=== PATIENT | female | born 1995 | race Caucasian/White ===

== ENCOUNTER 2017-09-16 10:09 | Emergency (ER) | payer OTHER, MEDICAID, SELFPAY ==
[2017-09-16 10:10] VITALS: BP 96/66; PULSE 85; RESP 17; TEMP 36.9; O2SAT 100; BMI 16.8
--- NOTE | 2017-09-16 10:44 | ED.DCSUM_ITS ---
- ER Visit Summary Date of Service: 09/16/17 Chief Complaint: Abdominal pain History of Present Illness: The patient is a 22 F who states she has had 2 weeks of discomfort in her right abdomen because she over did it at her job, and strained muscles, that were painful when she moved around, and in the past for 5 days she has been having intermittent right-sided pain and she thinks there are 2 distinct pains that are new in the past for 5 days; and achy right upper quadrant pain and an intermittent sharp pain under her right ribs that she feels in her right shoulder when it occurs. She feels a little nauseated now because I have not eaten this morning but has had no associated nausea with her pains or vomiting. No changes in bowel movements which have been normal, normal urination without blood or frequency. No pain in her back. No pain radiates into her groin. No chest problems although she occasionally feels like she gets some reflux when she lies down, that is not occurring in the past few days. She states that she had gallbladder problems when I was . When asked about whether she had stones or not, or whether she had a workup, she states that she does not know over and over. She does not know she had an ultrasound, she does not think she had a HIDA scan, she does not know if she had any stones. Physical Examination: Well-appearing in no distress. Appears to be in pain when she tries to sit up so she rolls over onto her side. No CVA tenderness. Lungs are clear, heart is regular. Tender in the right upper quadrant diffusely , no Amaya sign. Abdomen soft and nondistended with normal bowel sounds present. No other areas of tenderness. Test Results: Blood work is all normal. This includes liver enzymes and lipase and white blood count, there is also no shift with the total white blood count which is 6.0. Urinalysis shows 100 leukocyte esterase, 5-10 white blood cells, this was sent for culture. negative. Right upper quadrant ultrasound is normal. Emergency Department Course and Treatment: I reviewed previous records, she has never had a right upper quadrant ultrasound, and has no documented ER visits here of pain in her right upper quadrant. Once while she was an early first trimester , she had some epigastric discomfort with a total bilirubin of 1.3 but no imaging, other than obstetric. Ultrasound today of the right upper quadrant is normal, and her total bilirubin is normal as are the rest of her liver enzymes. After a dose of IV Toradol, she is feeling much better, and is able to sit up and move around on her own without rolling over to expose her back. I do not think she needs an emergency CT of the abdomen and pelvis at this time. As I discussed with the patient, differential diagnosis does include intestinal pain, intraluminal etiologies, and abdominal wall muscular strain, or combination of these. Will prescribe her Ultram, Bentyl and omeprazole and advised her to follow-up with her doctor. OARRS negative. Treatment Plan: As above Disposition: Discharge home Impression: Right upper quadrant abdominal pain This note was generated with [employer] dictation software. It may contain incorrect words, spelling, and punctuation that were not noted in review of the chart prior to signing ED Disposition - Plan for ED Patient: Disposition: Home or Assisted Living Chief Complaint: Abd Pain Instructions: ED Abdominal Pain Unkn Cause Prescriptions: TraMADol [Ultram] 50 mg PO Q4H PRN PRN #20 tablet PRN Reason: Pain Omeprazole 20 mg PO DAILY #14 capsule. Dicyclomine HCl [Bentyl] 20 mg PO Q6H PRN #20 cap PRN Reason: abdominal discomfort Referrals: Ariela Jackson [NON-STAFF] - (or your own doctor if you have one)
--- NOTE | 2017-09-16 10:46 | US_ITS ---
STUDY: ABDOMINAL ULTRASOUND - RIGHT UPPER QUADRANT REASON FOR VISIT: Female, 22 years old. Right upper quadrant pain. TECHNIQUE: Ultrasound evaluation of the right upper quadrant was performed with real-time and static cifuentes-scale imaging. TECHNICAL QUALITY: Adequate. COMPARISON: None. FINDINGS: Liver: The liver measures 15.1 cm. There is normal echogenicity of the liver. The bile ducts are within normal limits. There is hepatic color flow. The direction of portal flow is hepatopetal. There is no demonstrated mass lesion. Gallbladder: Normal distended gallbladder. The gallbladder wall measures 1 mm. There is a negative sonographic Amaya's sign. There is no pericholecystic fluid. There are no gallstones. Common Bile Duct (C.B.D.): The common bile duct measures 3 mm. Pancreas: Normal size of the head, body and tail of the pancreas. There is normal echogenicity of the pancreas. There is no demonstrated pancreatic mass or cyst. Right Kidney: Normal size of the right kidney. The right kidney measures 10.2 cm. Normal renal cortex. The right cortex measures 1.4 cm. There is no demonstrated renal mass or cyst. There is no right hydronephrosis. Other: No focal abnormality identified in the right upper quadrant in the area noted by the patient as the region of pain. US/Gallbladder IMPRESSION: Normal right upper quadrant ultrasound examination. No gallstones or biliary dilatation. Electronically Signed: Pavan Sanchez MD at 13:15 EST , Service support ,
[2017-09-16] MEDS: Ondansetron 4 MG/2 ML Vial IV (11:07)
[2017-09-16] MEDS: Ketorolac 30 MG/ML Syringe IV (11:07)
[2017-09-16 11:22] LABS: Absolute Lymphocyte Count 1.93 X10^3/ul (0.83-4.51); Absolute Neutrophil Count 3.1 X10^3/uL (2.0-7.7); Basophil# 0.05 X10^3/uL; Basophil% 0.8 % (0-1); Eosinophil# 0.21 X10^3/uL; Eosinophils% 3.5 % (0-5); Hematocrit 37.2 % (37-47); Hemoglobin 12.1 g/dl (12.0-15.0); Lymphocyte # 1.93 X10^3/ul (4.0); Lymphocyte % 32.2 % (19-41); Mean Corp Hgb Conc 32.5 g/gl (32-36); Mean Corpuscular Hgb 29.2 pg (27.0-32.0); Mean Corpuscular Volume 89.9 fL (81-99); Mean Platelet Vol. 9.8 fl (6.2-12.0); Monocyte# 0.67 X10^3/uL; Monocyte% 11.2 % (0-10); Neutrophil # 3.13 X10^3/uL (2.7-7.7); Neutrophil % 52.3 % (47-70); Platelet Count 301 K/mm3 (150-450); RBC Distribution Width CV 13.1 % (11.6-14.6); RBC Distribution Width SD 43.3 fl (35.1-43.9); Red Blood Count 4.14 M/mm3 (4.2-5.4)
[2017-09-16 11:23] LABS: POSITIVE COUNT NO; POSITIVE DIFFERENTIAL NO; POSITIVE MORPHOLOGY NO
[2017-09-16 11:32] LABS: Red Blood Cells-Urine 0 SEEN /hpf (0-5)
[2017-09-16 11:36] LABS: Color, Urine Yellow (Yellow); Glucose, Dipstick Normal (Normal); Ketone-Dipstick Negative (Negative); Leukocyte Esterase-Dipstick 100 /ul (Negative); Nitrite-Dipstick Negative (Negative); Occult Blood-Urine Negative /ul (Negative); Protein-Dipstick 15 mg/dl (Negative); Specific Gravity, Urine 1.015 (1.002-1.030); Urine Bilirubin Dipstick Negative (Negative); Urine Clarity Clear (Clear); Urine Urobilinogen 4 mg/dl (Normal); Urine pH 6.5 (5.0 - 8.0)
[2017-09-16 11:38] LABS: Internal QC Validated? YES +Cl - CLEAR BKGD; Pregnancy, Urine Negative Negative
[2017-09-16 11:42] LABS: ALB/GLOB Ratio 0.7 RATIO (0.9-2.4); AST(SGOT) 14 U/L (15-37); Alanine Aminotransfer ALT/SGPT 23 U/L (13-56); Albumin, Serum 3.2 g/dL (3.2-5.0); Alkaline Phosphatase 78 U/L (45-117); Anion Gap 8 (5-15); BUN 13 mg/dL (7-18); BUN/Creat Ratio 19.1 RATIO (10-20); Calcium,Total 8.6 mg/dL (8.5-10.1); Chloride 106 mmol/L (98-107); Creatinine, Serum 0.68 mg/dL (0.55-1.02); EST Glomerular Filtration Rate 113 mL/min (>60); Est Glom Filt Rate - Afr Amer 136 mL/min (>60); Estimated Creatinine Clearance 89.52 ml/min; Globulin 4.7 g/dL (2.2-4.2); Glucose 77 mg/dL (74-106); Lipase 117 U/L (73-393); Protein, Total 7.9 g/dL (6.4-8.2); Sodium Level 138 mmol/L (136-145)
[2017-09-16 11:45] LABS: Bacteria 1+ /hpf (None Seen); Mucous, Urine 1+ /hpf (<or=2+); Squamous Epithelial Cells - UA 0-5 SEEN /hpf (5-10); White Blood Cells 5-10 SEEN /hpf (0-5)
[2017-09-16 15:00] VITALS: RESP 16
[2017-09-16 15:43] VITALS: PULSE 79; RESP 14
== END 2017-09-16 15:45 | disposition home or self-care (01) ==
PROVIDERS: Emergency Provider Emergency Medicine
DX: R10.11 Right upper quadrant pain (principal); R11.0 Nausea; Z72.0 Tobacco use
CPT/HCPCS: 76705; 80053; 81001; 81025; 83690; 85025; 87086; 87088; 99283; A4216; J2405

== ENCOUNTER 2018-08-09 10:15 | Day surgery (SDC) | payer OTHER, MEDICAID, SELFPAY ==
[2018-08-09] VITALS (7 sets, daily range): BP systolic 104–119; BP diastolic 57–87; PULSE 60–84; RESP 16–18; TEMP 36.2–37.1; O2SAT 99–100; BMI 17.7
--- NOTE | 2018-08-09 | IMM_PTH ---
PATIENT: NEIL BAUTISTA [place] [facility] [place][id number] AGE/SX: 23/F ROOM: RE08/09/[address]: Dr. Jamie Beck MD : 1995 BED: DIS: 08/09/2018 SPEC #: [id number] RECD: 08/10/18 10:06 STATUS: CHERY VARGHESE #: [id number] KIESHA: 08/09/18 00:[address]: Jamie Beck DEPT: IMMUNOHISTOCHEMISTRY RECD BY: Camila Spencer ENTERED: 08/10/18 10:09 SP TYPE: IMMUNO OTHR DR: No Primary Care Phys Tissues: A - Uterine cervix, NOS B - Uterine cervix, NOS Procedures: p16 (initial) KI-67 (add) PHYSICIAN & INSTITUTION [place] [id number] SPECIMEN INFORMATION: Tissue Source: A - Inferior LEEP, B - Superior LEEP Clinical Info: APOORVA III, severe dysplasia, endometrial polyp Specimen Number: [id number] A1 & B1 CPT code: 11958 x2, 40479 x2 METHODOLOGY: Deparaffinized sections of prefer/formalin-fixed tissue or PAP/DQ stained slides are incubated with monoclonal/polyclonal antibodies/oligonucleotide probes. Localization is made via biotin free immunoperoxidase method. Appropriate controls are performed and reacted as expected. Results on target cell population are indicated in the following table: RESULTS: ANTIBODY / CLONE RESULT Block A1 P16 (E6H4) positive, block staining Ki-67 (30-9) positive, moderate Block B1 P16 (E6H4) positive, focal and patchy Ki-67 (30-9) negative These tests were developed and their performance characteristics determined by [facility]. They may not have been cleared or approved by the U.S. Food and Drug Administration. The FDA has determined that such clearance or approval is not necessary. INTERPRETATION: A. Inferior LEEP: Moderate to severe squamous dysplasia. B. Superior LEEP: Focal changes suspicious for HPV cytopathic effects. SJ:michael 08/13/18
--- NOTE | 2018-08-09 | CER_PTH ---
PATIENT: NEIL BAUTISTA LOC: [facility] – [place] U#:[id number] AGE/SX: 23/F ROOM: RE08/09/[address]: Dr. Jamie Beck MD : 1995 BED: DIS: 08/09/2018 SPEC #: [id number] RECD: 08/09/18 15:18 STATUS: CHERY VARGHESE #: [id number] KIESHA: 08/09/18 00:[address]: Jamie Beck DEPT: SURGICAL PATHOLOGY RECD BY: Cuco Trevino ENTERED: 08/09/18 15:19 SP TYPE: CERV OTHR DR: No Primary Care Phys Tissues: A - UTERINE CERVIX LEEP B - UTERINE CERVIX LEEP C - Endocervical D - Endometrium, NOS Procedures: Surgery Specimen Level IV Surgery Specimen Level V HEADER OPERATION: LEEP cone PRE-OP DIAGNOSIS: APOORVA III with severe dysplasia, endometrial polyp TISSUE SUBMITTED: A - Inferior LEEP, B - Superior LEEP, C - Endocervical curettings, D - Endometrial curettings MICROSCOPIC DIAGNOSIS A. 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 Chronic inflammation. Resection margins are free of dysplastic changes. See comment. B. Cervix, superior LEEP conization: Focal changes suspicious for HPV cytopathic effects. Chronic inflammation and squamous metaplasia. Resection margins are free of dysplastic changes. See comment. C. Endocervical curettings: Fragments of benign endocervical mucosa, blood and mucous. Fragments of proliferative endometrium. D. Endometrial curettings: Proliferative endometrium. Focal area of hyalinized nodule, consistent with placental site nodule. SJ:rg 08/10/18 COMMENT A & B. Immunohistochemistry ([id number]) for surrogate HPV marker (p16) supports the above diagnosis. This case has been reviewed in consultation with Dr. Senior who concurs with the above diagnosis. MICROSCOPIC DESCRIPTION Slides are reviewed. GROSS DESCRIPTION A - Received in fixative is one container labeled with the patient's name and designated inferior LEEP. The specimen consists of a krause, indurated piece of tissue measuring 2 x 1 x 0.5 cm. No mucosal lesion is identified. The nonmucosal surface is inked black. The specimen is serially sectioned and submitted entirely in two cassettes. B - Received in fixative is one container labeled with the patient's name and designated superior LEEP. The specimen consists of a krause, indurated piece of tissue measuring 1.5 x 0.6 x 0.6 cm. No mucosal lesion is identified. The nonmucosal surface is inked black. The specimen is serially sectioned and submitted entirely in two cassettes. C - Received in fixative is one container labeled with the patient's name and designated endocervical curettings. The specimen consists of multiple fragments of hemorrhagic soft tissue mixed with mucoid tissue that in aggregate measure 2.5 x 2.5 x 0.1 cm. The specimen is totally submitted in one cassette. D - Received in fixative is one container labeled with the patient's name and designated endometrial curettings. The specimen consists of multiple irregular fragments of pink soft tissue that in aggregate measure 2 x 2 x 0.2 cm. The entire specimen is submitted in one cassette. / SJ:rg 08/09/18 TC:5 CPT: 10584 x2, 74361 x2
[2018-08-09 10:39] LABS: Internal QC Validated? YES +Cl - CLEAR BKGD; Pregnancy, Urine Negative Negative
[2018-08-09 10:50] LABS: Hemoglobin 13.9 g/dl (12.0-15.0); Mean Corp Hgb Conc 33.1 g/gl (32-36); Mean Corpuscular Hgb 30.2 pg (27.0-32.0); Mean Corpuscular Volume 91.1 fL (81-99); Mean Platelet Vol. 10.4 fl (6.2-12.0); Platelet Count 223 K/mm3 (150-450); RBC Distribution Width CV 12.7 % (11.6-14.6); RBC Distribution Width SD 41.8 fl (35.1-43.9); Red Blood Count 4.61 M/mm3 (4.2-5.4); Scan Indicated on CBC? Y/N NO
--- NOTE | 2018-08-09 12:51 | DCINST_ITS ---
Discharge Diet: No Restrictions Discharge Activity: May Drive - after 24 hours, May Shower May resume sexual activity in: 4-6 weeks - after seen by MD Call your doctor if you observe: Fever of 101 or Higher, Coldness, Increased Pain, Numbness or Tingling, Change in Color, Inability to urinate, Inability to have a bowel movement, Using more than one pad per hour, Shortness of breath, Fainting spells, Chest pain, Increased palpitations (irregular heartbeat), Uncontrolled pain Allergies/Adverse Reactions: Allergies acetaminophen [From Tylenol] Adverse Reaction (Verified 08/02/18 09:21) Other headache/migraine n/v aspirin [ASA] Adverse Reaction (Verified 08/02/18 09:21) Nausea nausea and migraine diphenhydramine [From Benadryl] Adverse Reaction (Verified 08/02/18 09:21) Other n/v migraine hydrocodone bitartrate [From Vicodin] Adverse Reaction (Verified 08/02/18 09:21) Other n/v migraine ibuprofen [From Advil] Adverse Reaction (Verified 08/02/18 09:21) Other n/v migraine oxycodone [From Percocet] Adverse Reaction (Verified 08/02/18 09:21) Other n/v migraine Medications to take at Discharge NK 08/02/18 Orders to be completed after discharge: ,Urine Time Frame: 08/09/18, Location: Laboratory Primary Care Physician: Care Physician,No Primary [Primary Care Provider] - Test Results: Test results from this visit will be discussed in further detail at your follow- up appointment, if applicable.
--- NOTE | 2018-08-09 12:53 | PCM.OPRPT ---
Report of Operation Date of Procedure: 08/09/18 Pre-Operative Diagnosis: (1) APOORVA 3 (2) Possible endometrial polyp Post-Operative Diagnosis: Same Surgery/Procedure Performed:: LEEP, Hysteroscopy with D&C Description of Surgical Findings:: Cervix with non-staining area c/w dysplasia. Uterus with proliferative appearing endometrial tissue. Possible small polyp vs normal endometrial tissue at fundus. Type of Anesthesia:: Local MAC Specimen's removed: Cervical cone specimens, ECC & EMC with possible endometrial polyp Estimated Blood Loss (mL): 75ml Fluids Replaced: 1,000ml Description of Procedure: Patient taken to room where MAC anesthesia placed & found to be adequate. She was placed in the dorsal lithotomy position, prepped & draped in normal sterile fashion. Speculum was placed & cervix visualized. Lugols placed & cervical dysplasia identifed. LEEP performed with 2x1 radius electrode in 2 passes. ECC performed. Roller ball used obtain some hemostasis. Then the cervix was gently dilated. Anterior cervix was grasped was a tenaculum. Hysteroscope was introduced. Sharp curettage performed with #1 curette. Repeat hysteroscopy showed some proliferative tissue at the fundus vs small polyp. Hysteroscope removed. Polyp grasper inserted & polyp vs endometrial tissue grasped & removed. Repeat hysteroscopy confirmed that this tissue had been removed. Tenaculum removed from cervix. LEEP site was then further cauterized with the roller ball to obtain hemostasis. Fibrillar was placed in the cone site. At end of procedure all instruments were removed from the vaginal cavity and vaginal sweep was performed. Patient tolerated with procedure well. - Complications None - Admit VTE Documentation VTE Mechan Device Prophylaxis: SCD's
== END 2018-08-09 14:11 | disposition home or self-care (01) ==
LOC: SDC 10:17 → AC 10:19
PROVIDERS: Referring Provider Obstetrics & Gynecology; Visit Provider Obstetrics & Gynecology
PROC: 0UBC7ZZ Excision of Cervix, Via Natural or Artificial Opening (ICD-10-PCS; CPT 57522; principal; 2018-08-09 11:30)
PROC: 0UB98ZZ Excision of Uterus, Via Natural or Artificial Opening Endoscopic (ICD-10-PCS; CPT 58558; 2018-08-09 11:30)
DX: D06.9 Carcinoma in situ of cervix, unspecified (principal); D26.1 Other benign neoplasm of corpus uteri; F17.200 Nicotine dependence, unspecified, uncomplicated
CPT/HCPCS: 57461; 58558; 36415; 81025; 85027; 86850; 86900; 88305; 88307; 88341; 88342; J7120

== ENCOUNTER 2020-03-09 18:15 | Emergency (ER) | payer SELFPAY ==
[2019-05-01 14:34] VITALS: BMI 17.7
[2020-03-09 18:16] VITALS: BP 106/76; PULSE 93; RESP 19; TEMP 37; O2SAT 97; BMI 17.8
[2020-03-09 20:25] LABS: Absolute Lymphocyte Count 3.19 X10^3/uL (0.83-4.51); Absolute Neutrophil Count 4.4 X10^3/uL (2.0-7.7); Basophil# 0.07 X10^3/uL; Basophil% 0.8 % (0-1); Eosinophil# 0.26 X10^3/uL; Hematocrit 42.9 % (37-47); Hemoglobin 14.3 g/dL (12.0-15.0); Lymphocyte # 3.19 X10^3/ul (4.0); Lymphocyte % 37.3 % (19-41); Mean Corp Hgb Conc 33.3 g/dL (32-36); Mean Corpuscular Hgb 31.2 pg (27.0-32.0); Mean Corpuscular Volume 93.5 fL (81-99); Mean Platelet Vol. 10.6 fl (6.2-12.0); Monocyte# 0.61 X10^3/uL; Monocyte% 7.1 % (0-10); NRBC Flagged by Analyzer 0 % (0-5); Neutrophil # 4.41 X10^3/uL (2.7-7.7); Neutrophil % 51.6 % (47-70); Platelet Count 208 K/mm3 (150-450); RBC Distribution Width CV 11.8 % (11.6-14.6); RBC Distribution Width SD 40.3 fl (35.1-43.9); Red Blood Count 4.59 M/mm3 (4.2-5.4); White Blood Count 8.6 K/mm3 (4.4-11.0)
[2020-03-09 20:34] LABS: Red Blood Cells-Urine 0 SEEN /hpf (0-5); White Blood Cells 0 SEEN /hpf (0-5)
[2020-03-09 20:38] LABS: Color, Urine Yellow (Yellow); Glucose, Dipstick Normal (Normal); Ketone-Dipstick 5 mg/dl (Negative); Leukocyte Esterase-Dipstick Negative /ul (Negative); Nitrite-Dipstick Negative (Negative); Occult Blood-Urine Negative /ul (Negative); Protein-Dipstick 15 mg/dl (Negative); Specific Gravity, Urine 1.025 (1.002-1.030); Urine Bilirubin Dipstick Negative (Negative); Urine Clarity Clear (Clear); Urine Urobilinogen 1 mg/dl (Normal)
[2020-03-09 20:40] LABS: Anion Gap 4 (5-15); BUN 12 mg/dL (7-18); BUN/Creat Ratio 14.6 RATIO (10-20); Chloride 110 mmol/L (98-107); Creatinine, Serum 0.82 mg/dL (0.55-1.02); EST Glomerular Filtration Rate 89 mL/min (>60); Est Glom Filt Rate - Afr Amer 108 mL/min (>60); Glucose 101 mg/dL (74-106); Potassium 4.1 mmol/L (3.5-5.1); Sodium Level 142 mmol/L (136-145)
[2020-03-09 20:44] LABS: Bacteria RARE /hpf (None Seen); Mucous, Urine RARE /hpf (<or=2+); Squamous Epithelial Cells - UA 0-5 SEEN /hpf (5-10)
[2020-03-09 20:45] LABS: Internal QC Validated? YES +Cl - CLEAR BKGD; Pregnancy, Serum, hCG Quali. NEGATIVE Negative
--- NOTE | 2020-03-09 21:15 | ED.VIS.GEN ---
History of Present Illness Chief Complaint: Abd Pain Informant: Patient Narrative: Patient is a 24-year-old female with a history of bipolar disorder who presents to the emergency department for abdominal pain and fever at home. She states that the pain has been constant dull ache but ranges in severity. It is currently a 7 out of 10. Does get up to a 10 out of 10 occasionally. She has never had this happen before in the past. The majority the pain is in the left upper quadrant and epigastric region. She tried taking a laxative for some constipation but this did not give any relief. Her last bowel movement was yesterday. No melena or bright red blood in her stools. She denies any episodes of vomiting but has felt nauseous. Her temperature at home was taken and was 101. This resolved without treatment. She does not know any other aggravating or relieving factors. She denies any chest pain or shortness of breath. No urinary symptoms. No vaginal bleeding or discharge. She is a current everyday smoker. Denies alcohol or drug use. Past Medical History - Allergies and Home Meds Allergies/Adverse Reactions: Allergies acetaminophen [From Tylenol] Adverse Reaction (Verified 03/09/20 18:18) Other headache/migraine n/v aspirin [ASA] Adverse Reaction (Verified 03/09/20 18:18) Nausea nausea and migraine diphenhydramine [From Benadryl] Adverse Reaction (Verified 03/09/20 18:18) Other n/v migraine hydrocodone bitartrate [From Vicodin] Adverse Reaction (Verified 03/09/20 18:18) Other n/v migraine ibuprofen [From Advil] Adverse Reaction (Verified 03/09/20 18:18) Other n/v migraine oxycodone [From Percocet] Adverse Reaction (Verified 03/09/20 18:18) Other n/v migraine Primary Care Physician: Care Physician,No Primary [Primary Care Provider] - Hadley Quintero MD [[facility]] - 3-5 Days if not improving Past Medical History: - - Bipolar Smoking Status: Current every day smoker Review of Systems All systems negative except as indicated General: Denies: Chills, Fever, Sweats Eyes: Denies: Visual changes - bilaterally, Diplopia ENT: Denies: Rhinorrhea, Sore throat Cardiovascular: Denies: Chest pain, Palpitations Respiratory: Denies: Dyspnea, Cough, Dyspnea on exertion Gastrointestinal: Reports: Abdominal pain, Nausea, Constipation. Denies: Vomiting, Diarrhea, Melena, Hematochezia Genitourinary: Denies: Dysuria, Hematuria, Frequency Musculoskeletal: Denies: Back pain, Extremity Pain Skin: Denies: Rash, Wounds Neurological: Denies: Headache, Weakness, Numbness Physical Exam Vital Signs/Narrative: Vital Signs Temp Pulse Resp BP Pulse Ox 03/09/20 18:16 98.6 F 93 19 H 106/76 97 Inital Vital Signs reviewed: Yes General: Well nourished, Well developed, No Acute Distress Head: Normocephalic, Atraumatic Eyes: Perrl, EOMI ENT: Moist mucous membranes, No rhinorrhea Neck: Supple, Nontender Cardiovascular: Regular rate, Regular rhythm, No murmurs Respiratory: No distress, CTA bilaterally, Chest nontender Abdomen: Soft, Nondistended, Normal bowel sounds, Tender - Epigastric and left upper quadrant to deep palpation, - - No pain over McBurney's point.. Negative for: Guarding, Rebound tenderness Back: Nontender, Normal Inspection. Negative for: CVA tenderness Extremities: Nontender, No edema Skin: Normal color, No rash Neurological: Alert, Oriented x3, Cranial nerves II-XII grossly intact, Normal Strength, Normal Sensation Psychological: Normal affect, Normal Mood Diagnostic/Tx/Re-eval - Medical Decision Making Patient presents to the emergency department for abdominal pain. Upon arrival to the emerge department vital signs within normal limits. She does have tenderness on physical exam to the left upper quadrant/epigastrium. Will obtain basic lab work. Will try a GI cocktail for symptomatic treatment. Patient's lab work-up did not reveal any significant acute abnormality. Liver functions within normal limits. No elevated white blood cell count. No evidence of UTI. Lipase within normal limits. After GI cocktail. She states that her symptoms have basically completely resolved. She is feeling much better and would like to go home at this time. Potentially patient has an ulcer. No peritoneal signs on physical exam. At this time will hold off on CT imaging. Will treat with Protonix and Carafate. She does not have a PCP and will be given 1 off the no doc list for follow-up. Warning signs and symptoms for which to return to the emerge department including developing worsening abdominal pain, blood in the stool, fevers or chills. She understands and is agreeable this plan. Will discharge home in stable condition. ED Disposition - Plan for ED Patient: Disposition: Home or Assisted Living Diagnosis: Abdominal pain Instructions: Peptic Ulcer, ED Abdominal Pain Unkn Cause Fem Prescriptions: Sucralfate [Carafate] 1 gm PO 4X/DAY #30 tab Transmission Status: Received by [facility]/pharmacy #[id number] Pantoprazole Sodium [Protonix] 40 mg PO DAILY #30 tab Transmission Status: Received by [facility]/pharmacy #[id number] Referrals: Care Physician,No Primary [Primary Care Provider] - Hadley Quintero MD [[facility]] - 3-5 Days if not improving
[2020-03-09] MEDS: Mag Hydrox/Al Hydrox/Simeth 30 ML UDC PO (21:22)
[2020-03-09 21:42] LABS: AST(SGOT) 9 U/L (15-37); Alanine Aminotransfer ALT/SGPT 18 U/L (13-56); Albumin, Serum 4.4 g/dL (3.2-5.0); Alkaline Phosphatase 57 U/L (45-117); Bilirubin, Direct 0.14 mg/dL (0.00-0.30); Globulin 3.5 g/dL (2.2-4.2); Lipase 99 U/L (73-393); Protein, Total 7.9 g/dL (6.4-8.2)
[2020-03-09 22:40] VITALS: BP 100/71; PULSE 94; RESP 18; O2SAT 98
== END 2020-03-09 22:42 | disposition home or self-care (01) ==
PROVIDERS: Emergency Provider Emergency Medicine
DX: R10.12 Left upper quadrant pain (principal); F17.200 Nicotine dependence, unspecified, uncomplicated
CPT/HCPCS: 80048; 80076; 81001; 83690; 84703; 85025; 99284; A4216

== ENCOUNTER 2020-12-19 14:57 | Emergency (ER) | payer MEDICAID, SELFPAY ==
[2020-12-19 14:58] VITALS: BP 111/65; PULSE 101; RESP 16; TEMP 36.6; O2SAT 96; BMI 18.7
--- NOTE | 2020-12-19 15:20 | EKG12_ITS ---
Test Reason : PALPTATIONS Blood Pressure : / mmHG Vent. Rate : 082 BPM Atrial Rate : 082 BPM P-R Int : 168 ms QRS Dur : 074 ms QT Int : 364 ms P-R-T Axes : 078 090 054 degrees QTc Int : 425 ms Normal sinus rhythm Rightward axis Borderline ECG Confirmed by ELIZA DE, JESI ([id number]), medical transcription editor JENNIFER DUARTE ([id number]) on 12/22/2020 9:25:43 AM Referred By: Confirmed By:JESI KAY MD
[2020-12-19 15:38] VITALS: BP 102/76; PULSE 82; RESP 14; O2SAT 99
--- NOTE | 2020-12-19 16:07 | EX.ED.DYSGE1 ---
HPI History of Present Illness Chief Complaint: Palpitations Informant: patient Narrative Narrative: Patient is a 25-year-old female who presents at 7 weeks for shortness of breath, palpitations. Her initial symptoms started earlier this morning. She has had these symptoms before in the past when she was . She denies any chest pain. She is currently denying palpitations or shortness of breath. Exerting herself does seem to make it worse. No history of CAD, DVT/PE. She denies any leg swelling or calf pain. She does have chronic issues with her circulation that she states she loses sensation in her arms and legs. She also states she gets hypoglycemic. These are not new issues for her. She denies any syncopal episodes. No falls or trauma. She denies any abdominal pain. No vaginal bleeding. No urinary symptoms. She has any nausea vomiting. She denies a cough or any fever/chills. [facility] Medical History (Updated 12/19/20 @ 17:[address] Jose Antonio Hooks DO) Back pain Shoulder pain Home Medications 1 tab PO/SL DAILY 12/19/20 [History Last Taken Unknown] Allergy/AdvReac Type Severity Reaction Status Date / Time acetaminophen [From Tylenol] AdvReac Other Verified 12/19/20 15:40 aspirin [ASA] AdvReac Nausea Verified 12/19/20 15:40 diphenhydramine AdvReac Other Verified 12/19/20 15:40 [From Benadryl] hydrocodone bitartrate AdvReac Other Verified 12/19/20 15:40 [From Vicodin] ibuprofen [From Advil] AdvReac Other Verified 12/19/20 15:40 oxycodone [From Percocet] AdvReac Other Verified 12/19/20 15:40 Surgical History H/O LEEP History of tonsillectomy Uterine mass Social History Smoking Status: Current every day smoker alcohol intake: never ROS ROS ED Constitutional Constitutional ED: Denies chills or fever(s) Eyes Eyes: Denies change in vision ENT ENT ED: Denies epistaxis or rhinorrhea Cardiovascular Cardiovascular: Reports palpitations; Denies chest pain Respiratory/Chest Respiratory/Chest: Reports dyspnea; Denies chest tightness or cough Gastrointestinal Gastrointestinal: Denies abdominal pain, diarrhea, nausea or vomiting Genitourinary Genitourinary ED: Denies dysuria, hematuria or urinary frequency Musculoskeletal Musculoskeletal: Denies back pain or neck pain Integumentary Denies rash Neurologic Neurologic: Denies dizziness, headache(s) or weakness EXAM Physical Exam Const Vital Signs: 12/19/20 14:58 12/19/20 15:34 12/19/20 15:38 Temperature 97.8 F Temperature Source Temporal Pulse Rate 101 H 82 Pulse Rate [Lying] Pulse Rate [Sitting] Pulse Rate [Standing] Respiratory Rate 16 14 Respiratory Effort Normal Blood Pressure 111/65 102/76 Blood Pressure [Lying] Blood Pressure [Sitting] Blood Pressure [Standing] Blood Pressure Mean 80 84 Blood Pressure Mean [Lying] Blood Pressure Mean [Sitting] Blood Pressure Mean [Standing] Pulse Ox 96 99 Oxygen Delivery Method Room Air Room Air 12/19/20 16:25 12/19/20 18:05 Temperature Temperature Source Pulse Rate 70 Pulse Rate [Lying] 70 Pulse Rate [Sitting] 69 Pulse Rate [Standing] 85 Respiratory Rate 14 Respiratory Effort Blood Pressure 98/64 Blood Pressure [Lying] 100/63 Blood Pressure [Sitting] 102/65 Blood Pressure [Standing] 105/63 Blood Pressure Mean Blood Pressure Mean [Lying] 75 Blood Pressure Mean [Sitting] 77 Blood Pressure Mean [Standing] 77 Pulse Ox 98 Oxygen Delivery Method Positive well nourished and well developed General Appearance ED: well developed and NAD HEENT Reports normocephalic, head/scalp atraumatic and moist mucous membranes Eyes PERRL and EOMs intact bilaterally Neck no lymphadenopathy and supple General: Negative for tenderness Chest Wall inspection of chest normal Resp normal respiratory effort and clear to auscultation bilaterally Auscultation: Negative for rales, rhonchi or wheezes Cardio regular rate, regular rhythm and no murmurs GI normal to inspection, nondistended, normoactive bowel sounds and non-tender Palpation: soft; Negative for guarding or rebound tenderness present Back/Spine no CVA tenderness Extremity normal to inspection General Extremety ED: Negative for edema or tenderness General Extremity: Negative for edema Neuro oriented x3 and no sensory deficits noted Sensorium / Orientation: alert Motor Exam: strength 5/5 throughout Psych mental status grossly normal Skin no rashes or lesions noted MDM MDM MDM Narrative Medical decision making narrative: Patient presents to the ED for palpitations and shortness of breath. Upon arrival to the emergency department she is in no acute distress. She is satting 99% on room air. She is currently 7 weeks . She has had a previous ultrasound. She has had these symptoms before with her previous . Will check basic lab work to evaluate electrolyte status as well as blood counts. Will check chest x-ray. Risks associated with x-ray were discussed with her and will use a shield. EKG was obtained which did not show any signs of ischemia or arrhythmia. She is up walking around the ED without any issue. Patient's lab work showed her to be mildly anemic. Otherwise no significant electrolyte abnormality. She was asymptomatic throughout orthostatic vitals. She does feel comfortable going home. I very low concern for ACS, aortic catastrophe, PE. She has had these symptoms before in the past with previous pregnancies. She has been stable throughout ED stay. She is to follow-up with her PCP and [facility]. She is to return for worsening symptoms to the emergency department for further evaluation. She understands and is agreeable this plan. Discharged home in stable condition. All questions were answered. Lab Data Labs: Laboratory Results - last 24 hr 12/19/20 12/19/20 12/19/20 16:15 16:15 16:15 WBC 5.2 RBC 3.77 L Hgb 11.5 L Hct 34.9 L MCV 92.6 MCH 30.5 MCHC 33.0 RDW Std Deviation 40.3 RDW Coeff of Deepak 11.8 Plt Count 177 MPV 10.0 Immature Gran % (Auto) 0.400 Neut % (Auto) 55.9 Lymph % (Auto) 31.9 Rich % (Auto) 10.4 H Eos % (Auto) 1.0 Baso % (Auto) 0.4 Absolute Neuts (auto) 2.9 Absolute Lymphs (auto) 1.66 Nucleated RBC % 0 Sodium 137 Potassium 4.0 Chloride 109 H Carbon Dioxide 24.0 Anion Gap 4 L BUN 11 Creatinine 0.65 Estim Creat Clear Calc 101.59 Est GFR (MDRD) Af Amer 139 Est GFR (MDRD) Non-Af 115 BUN/Creatinine Ratio 16.8 Glucose 77 Calcium 8.5 Total Bilirubin 0.90 Direct Bilirubin 0.24 AST 10 L ALT 20 Alkaline Phosphatase 40 L Troponin I < 0.015 Total Protein 6.5 Albumin 3.5 Globulin 3.0 Urine Color Urine Clarity Urine pH Ur Specific [place] Urine Protein Urine Glucose (UA) Urine Ketones Urine Occult Blood Urine Nitrite Urine Bilirubin Urine Urobilinogen Ur Leukocyte Esterase Urine RBC Urine WBC Ur Squamous Epith Cells Urine Bacteria Urine Mucus 12/19/20 16:20 WBC RBC Hgb Hct MCV MCH MCHC RDW Std Deviation RDW Coeff of Deepak Plt Count MPV Immature Gran % (Auto) Neut % (Auto) Lymph % (Auto) Rich % (Auto) Eos % (Auto) Baso % (Auto) Absolute Neuts (auto) Absolute Lymphs (auto) Nucleated RBC % Sodium Potassium Chloride Carbon Dioxide Anion Gap BUN Creatinine Estim Creat Clear Calc Est GFR (MDRD) Af Amer Est GFR (MDRD) Non-Af BUN/Creatinine Ratio Glucose Calcium Total Bilirubin Direct Bilirubin AST ALT Alkaline Phosphatase Troponin I Total Protein Albumin Globulin Urine Color Yellow Urine Clarity Cloudy Urine pH 6.0 Ur Specific [place] 1.025 Urine Protein Negative Urine Glucose (UA) Normal Urine Ketones 50 H Urine Occult Blood Negative Urine Nitrite Negative Urine Bilirubin Negative Urine Urobilinogen Normal Ur Leukocyte Esterase 25 H Urine RBC 0 SEEN Urine WBC 0 SEEN Ur Squamous Epith Cells 10-25 SEEN Urine Bacteria 1+ Urine Mucus 0 SEEN Radiography Chest X-Ray - ED: 1 View (X-ray interpreted by myself. Clear lung bartlett bilaterally. No pleural effusions. Normal cardiac silhouette. Normal mediastinum. Agree with radiologist interpretation.) Diagnostic Testing: Radiology Impression Chest X-Ray 12/19/20 16:36 IMPRESSION: Nonacute portable x-ray examination of the chest. Electronically Signed: Tru Malik MD ([place]) at 17:04 EDT , Service support , EKG Initial EKG: Attestation: I personally reviewed and interpreted this EKG as follows: (Rate of 82 bpm and normal sinus rhythm. Normal intervals. Normal axis. No significant ST elevations or depressions. No T wave abnormalities.) Discharge Plan Triage Chief Complaint: Palpitations ED Provider: Jose Antonio Hooks Dx/Rx/DC Orders Clinical Impression: Palpitations, Dyspnea Instructions: ED Dyspnea, ED Palpitations Prescriptions: No Action 1 tab 1 tab PO/SL DAILY RF: 0 Primary Care Provider: Care Physician,No Primary Referrals: Care Physician,No Primary [Primary Care Provider] - 3-5 Days Disposition Disposition: Home, self care Discharge Date/Time: 12/19/20 18:13
[2020-12-19 16:23] LABS: Absolute Lymphocyte Count 1.66 X10^3/uL (0.83-4.51); Absolute Neutrophil Count 2.9 X10^3/uL (2.0-7.7); Basophil# 0.02 X10^3/uL; Basophil% 0.4 % (0-1); Eosinophil# 0.05 X10^3/uL; Hematocrit 34.9 % (37-47); Hemoglobin 11.5 g/dL (12.0-15.0); Lymphocyte # 1.66 X10^3/ul (0.83-4.51); Lymphocyte % 31.9 % (19-41); Mean Corpuscular Hgb 30.5 pg (27.0-32.0); Mean Corpuscular Volume 92.6 fL (81-99); Monocyte# 0.54 X10^3/uL; Monocyte% 10.4 % (0-10); NRBC Flagged by Analyzer 0 % (0-5); Neutrophil # 2.91 X10^3/uL (2.7-7.7); Neutrophil % 55.9 % (47-70); Platelet Count 177 K/mm3 (150-450); RBC Distribution Width CV 11.8 % (11.6-14.6); RBC Distribution Width SD 40.3 fl (35.1-43.9); Red Blood Count 3.77 M/mm3 (4.2-5.4); White Blood Count 5.2 K/mm3 (4.4-11.0)
[2020-12-19 16:25] VITALS: BP 100/63; BP 102/65; BP 105/63; PULSE 69; PULSE 70; PULSE 85
[2020-12-19 16:30] LABS: Mucous, Urine 0 SEEN /hpf (<or=2+); Red Blood Cells-Urine 0 SEEN /hpf (0-5); White Blood Cells 0 SEEN /hpf (0-5)
[2020-12-19 16:33] LABS: Color, Urine Yellow (Yellow); Glucose, Dipstick Normal (Normal); Ketone-Dipstick 50 mg/dl (Negative); Leukocyte Esterase-Dipstick 25 /ul (Negative); Nitrite-Dipstick Negative (Negative); Occult Blood-Urine Negative /ul (Negative); Protein-Dipstick Negative (Negative); Specific Gravity, Urine 1.025 (1.002-1.030); Urine Bilirubin Dipstick Negative (Negative); Urine Clarity Cloudy (Clear); Urine Urobilinogen Normal (Normal)
--- NOTE | 2020-12-19 16:36 | RAD_ITS ---
STUDY: X-RAY CHEST REASON FOR EXAM: Female, 25 years old. Dyspnea, palpitations TECHNIQUE: AP COMPARISON: None. FINDINGS: EKG leads project over the chest. The lungs are clear and expanded. There is no demonstrated pleural abnormality. Normal size heart. Normal mediastinum and martin. Normal visualized pulmonary arteries. Normal visualized aortic arch and descending thoracic aorta. Normal visualized thoracic spine. Normal visualized ribs, clavicles, and shoulders. There is no demonstrated abnormality of the visualized soft tissue structures of the upper abdomen. RAD/Chest 1 View (Portable) IMPRESSION: Nonacute portable x-ray examination of the chest. Electronically Signed: Tru Malik MD ([place]) at 17:04 EDT , Service support ,
[2020-12-19 16:43] LABS: AST(SGOT) 10 U/L (15-37); Alanine Aminotransfer ALT/SGPT 20 U/L (13-56); Albumin, Serum 3.5 g/dL (3.2-5.0); Alkaline Phosphatase 40 U/L (45-117); Bilirubin, Direct 0.24 mg/dL (0.00-0.30); Protein, Total 6.5 g/dL (6.4-8.2)
[2020-12-19 16:47] LABS: Bacteria 1+ /hpf (None Seen); Squamous Epithelial Cells - UA 10-25 SEEN /hpf (5-10)
[2020-12-19 16:52] LABS: Anion Gap 4 (5-15); BUN 11 mg/dL (7-18); BUN/Creat Ratio 16.8 RATIO (10-20); Calcium,Total 8.5 mg/dL (8.5-10.1); Chloride 109 mmol/L (98-107); Creatinine, Serum 0.65 mg/dL (0.55-1.02); EST Glomerular Filtration Rate 115 mL/min (>60); Est Glom Filt Rate - Afr Amer 139 mL/min (>60); Estimated Creatinine Clearance 101.59 ml/min; Glucose 77 mg/dL (74-106); Sodium Level 137 mmol/L (136-145)
[2020-12-19 18:05] VITALS: BP 98/64; PULSE 70; RESP 14; O2SAT 98
== END 2020-12-19 18:13 | disposition home or self-care (01) ==
PROVIDERS: Emergency Provider Emergency Medicine
DX: O26.891 Other specified pregnancy related conditions, first trimester (principal); R00.2 Palpitations; R06.00 Dyspnea, unspecified; O99.331 Smoking (tobacco) complicating pregnancy, first trimester; F17.200 Nicotine dependence, unspecified, uncomplicated; Z3A.01 Less than 8 weeks gestation of pregnancy
CPT/HCPCS: 71045; 80048; 80076; 81001; 84484; 85025; 87086; 87088; 93005; 99283; A4216

== ENCOUNTER 2021-02-11 11:32 | Emergency (ER) | payer MEDICAID, SELFPAY ==
[2021-02-11 11:33] VITALS: BP 104/69; PULSE 83; RESP 16; TEMP 36.6; O2SAT 99; BMI 18.8
--- NOTE | 2021-02-11 13:10 | EKG12_ITS ---
Test Reason : CHEST DISCOMFORT Blood Pressure : / mmHG Vent. Rate : 079 BPM Atrial Rate : 079 BPM P-R Int : 170 ms QRS Dur : 082 ms QT Int : 390 ms P-R-T Axes : 067 090 037 degrees QTc Int : 447 ms Normal sinus rhythm Rightward axis Borderline ECG Confirmed by MAU DE, KARAN ([id number]), supervising editor trailer JENNIFER DUARTE ([id number]) on 02/15/2021 9:28:33 AM Referred By: POWER Confirmed By:ELLIOTT LEÓN MD
--- NOTE | 2021-02-11 13:10 | RAD_ITS ---
STUDY: X-RAY CHEST REASON FOR EXAM: Female, 25 years old. Chest pain . Patient is . Patient was shielded appropriately. TECHNIQUE: Single AP portable view of the chest. COMPARISON: Comparison is made with prior examination 12/19/2020. FINDINGS: Hyperinflation. The lungs are clear. There is no demonstrated pleural abnormality. Normal size heart. Normal mediastinum and martin. Normal visualized pulmonary arteries. Normal visualized aortic arch and descending thoracic aorta. Normal visualized thoracic spine. Normal visualized ribs, clavicles, and shoulders. There is no demonstrated abnormality of the visualized soft tissue structures of the upper abdomen. RAD/Chest 1 View (Portable) IMPRESSION: Hyperinflation. Electronically Signed: Marquise Pickard MD at 14:04 EDT , Service support ,
[2021-02-11 13:31] VITALS: O2SAT 99
[2021-02-11 13:37] LABS: Absolute Lymphocyte Count 2.33 X10^3/uL (0.83-4.51); Basophil# 0.03 X10^3/uL; Basophil% 0.4 % (0-1); Eosinophil# 0.08 X10^3/uL; Hematocrit 34.2 % (37-47); Hemoglobin 11.4 g/dL (12.0-15.0); Lymphocyte # 2.33 X10^3/ul (0.83-4.51); Lymphocyte % 29.1 % (19-41); Mean Corp Hgb Conc 33.3 g/dL (32-36); Mean Corpuscular Hgb 30.9 pg (27.0-32.0); Mean Corpuscular Volume 92.7 fL (81-99); Mean Platelet Vol. 10.3 fl (6.2-12.0); Monocyte# 0.57 X10^3/uL; Monocyte% 7.1 % (0-10); NRBC Flagged by Analyzer 0 % (0-5); Neutrophil # 4.96 X10^3/uL (2.7-7.7); Platelet Count 187 K/mm3 (150-450); RBC Distribution Width CV 12.7 % (11.6-14.6); RBC Distribution Width SD 42.9 fl (35.1-43.9); Red Blood Count 3.69 M/mm3 (4.2-5.4)
[2021-02-11 13:52] LABS: Anion Gap 5 (5-15); BUN 8 mg/dL (7-18); Calcium,Total 8.7 mg/dL (8.5-10.1); Chloride 106 mmol/L (98-107); Creatinine, Serum 0.57 mg/dL (0.55-1.02); EST Glomerular Filtration Rate 134 mL/min (>60); Est Glom Filt Rate - Afr Amer 162 mL/min (>60); Estimated Creatinine Clearance 116.77 ml/min; Glucose 76 mg/dL (74-106); Potassium 3.7 mmol/L (3.5-5.1); Sodium Level 136 mmol/L (136-145); Troponin-I HS < 3.0 pg/mL (3.0-53.7)
--- NOTE | 2021-02-11 14:01 | EDS_ITS ---
HPI History of Present Illness Chief Complaint: Abd Pain Narrative Narrative: 25-year-old female presenting with right lower rib pain. She states that it has been intermittent and it is sharp. It was constant today. 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 She is not having any abdominal pain. She does not have nausea or vomiting. She denies any loss of blood or fluid vaginally. She denies urinary complaints. She denies fever, chills, cough. She has no history of DVT. PFSH PFSH Medical History Back pain Shoulder pain Home Medications 1 tab PO/SL DAILY 12/19/20 [History Last Taken Unknown] Allergy/AdvReac Type Severity Reaction Status Date / Time acetaminophen [From Tylenol] AdvReac Other Verified 02/11/21 11:33 diphenhydramine AdvReac Other Verified 02/11/21 11:33 [From Benadryl] hydrocodone bitartrate AdvReac Other Verified 02/11/21 11:33 [From Vicodin] ibuprofen [From Advil] AdvReac Other Verified 02/11/21 11:33 oxycodone [From Percocet] AdvReac Other Verified 02/11/21 11:33 Surgical History H/O LEEP History of tonsillectomy Uterine mass Social History Smoking Status: Current every day smoker tobacco type: cigarettes alcohol intake: never ROS ROS ED Constitutional Constitutional ED: Denies fever(s) or subjective Eyes Eyes: Denies blurry vision or diplopia ENT ENT ED: Denies rhinorrhea or sore throat Cardiovascular Cardiovascular: Denies chest pain or palpitations Respiratory/Chest Respiratory/Chest: Denies cough or dyspnea Gastrointestinal Gastrointestinal: Denies abdominal pain, nausea or vomiting Genitourinary Genitourinary ED: Denies dysuria, hematuria or urinary frequency Musculoskeletal Musculoskeletal: Denies myalgias Integumentary Denies abscess or rash Neurologic Neurologic: Denies headache(s) or paresthesias Psychiatric Psychiatric: Denies anxiety or depression EXAM Physical Exam Const Vital Signs: 02/11/21 11:33 02/11/21 13:31 02/11/21 15:21 Temperature 97.8 F Temperature Source Temporal Pulse Rate 83 71 Respiratory Rate 16 12 Blood Pressure 104/69 103/71 Blood Pressure Mean 80 81 Pulse Ox 99 99 100 Oxygen Delivery Method Room Air Room Air Room Air Positive well developed General Appearance ED: well developed and NAD HEENT normocephalic and atraumatic Eyes Negative for PERRL or EOMs intact bilaterally Resp normal respiratory effort Effort and Inspection: respiratory distress Cardio regular rate and regular rhythm GI normal to inspection, nondistended, normoactive bowel sounds Extremity normal to inspection General Extremety ED: Negative for edema General Extremity: Negative for edema Neuro oriented x3 Sensorium / Orientation: awake and alert Psych mental status grossly normal Skin no rashes or lesions noted and no wounds Heart Score History: Slightly/Non-Suspicious ECG: Normal Age: </= 45 years Risk Factors: No Risk Factors Troponin: </= Normal Limit Score: 0 MDM MDM MDM Narrative Medical decision making narrative: Patient presenting with right lower rib pain. She states is been constant this morning. Patient has no history of DVT/PE however she is 4 months . EKG on my interpretation shows a normal sinus rhythm [address] elevation or depression. There is no dysrhythmia troponin is less than 3. Renal function electrolytes normal. Chest x-ray shows no acute cardiopulmonary process as interpreted by myself and the radiologist does agree. D-dimer is elevated at 0.77. Discussed risk benefits of radiation for CTA given that patient is . She is amenable to CTA at this time. CTA of the chest is negative for acute PE or dissection. There is no pulmonary findings according to the radiologist. Patient counseled on findings. Patient discharged home in stable condition. Impression: 1. Chest pain Lab Data Labs: Laboratory Results - last 24 hr 02/11/21 02/11/21 02/11/21 13:25 13:25 13:25 WBC 8.0 RBC 3.69 L Hgb 11.4 L Hct 34.2 L MCV 92.7 MCH 30.9 MCHC 33.3 RDW Std Deviation 42.9 RDW Coeff of Deepak 12.7 Plt Count 187 MPV 10.3 Immature Gran % (Auto) 0.400 Neut % (Auto) 62.0 Lymph % (Auto) 29.1 [place] % (Auto) 7.1 Eos % (Auto) 1.0 Baso % (Auto) 0.4 Absolute Neuts (auto) 5.0 Absolute Lymphs (auto) 2.33 Nucleated RBC % 0 D-Dimer Quant (PE/DVT) 0.77 H* Sodium 136 Potassium 3.7 Chloride 106 Carbon Dioxide 25.0 Anion Gap 5 BUN 8 Creatinine 0.57 Estim Creat Clear Calc 116.77 Est GFR (MDRD) Af Amer 162 Est GFR (MDRD) Non-Af 134 BUN/Creatinine Ratio 14.0 Glucose 76 Calcium 8.7 Troponin I High Sens < 3.0 L Radiography Diagnostic Testing: Radiology Impression Chest X-Ray 02/11/21 13:10 IMPRESSION: Hyperinflation. Electronically Signed: Marquise Pickard MD at 14:04 EDT , Service support , Chest CTA 02/11/21 14:08 IMPRESSION: No pulmonary embolism or arterial dissection. The lungs are clear. Electronically Signed: Merry Henry MD at 15:47 EDT Tel , Service support , Discharge Plan Triage Chief Complaint: Abd Pain ED Provider: Cristian Grant Dx/Rx/DC Orders Instructions: ED Chest Pain, Uncertain Cause Prescriptions: No Action 1 tab 1 tab PO/SL DAILY RF: 0 Primary Care Provider: Care Physician,No Primary Referrals: Care Physician,No Primary [Primary Care Provider] - Disposition Disposition: Home, Self Care
[2021-02-11 14:02] LABS: D-Dimer Quantitative (DVT/PE) 0.77 FEU/ug/m (0.27-0.49)
--- NOTE | 2021-02-11 14:08 | CT_ITS ---
STUDY: CTA CHEST REASON FOR EXAM: Female, 25 years old. Chest pain RADIATION DOSAGE (If Supplied By Facility): CTDIvol = ( 5.4 ) mGy, DLP = ( 111.66 ) mGycm TECHNIQUE: The examination was performed with the intravenous administration of IV 75mL Isovue-370. Post-processing of the angiographic images was performed, with multiplanar reformation and 3D reconstruction. Individualized dose optimization techniques were used for this CT. COMPARISON: None. FINDINGS: Normal enhancement of the main pulmonary artery and right and left pulmonary arteries. Normal enhancement of the bilateral peripheral pulmonary arteries. There is no demonstrated pulmonary embolism. Normal pleura. Normal pulmonary parenchyma. There is no focal pulmonary consolidation or infiltrate. Normal thoracic aorta and visualized great vessels. There is no demonstrated aortic dissection. Normal heart and pericardium. No mediastinal, axillary or bulky hilar adenopathy. Normal visualized trachea and bronchi. Normal chest wall structures. Normal osseous structures. Normal visualized upper abdomen. CT/CTA Chest W/WO Contrast IMPRESSION: No pulmonary embolism or arterial dissection. The lungs are clear. Electronically Signed: Merry Henry MD at 15:47 EDT Tel , Service support ,
[2021-02-11 15:21] VITALS: BP 103/71; PULSE 71; RESP 12; O2SAT 100
[2021-02-11 16:05] VITALS: BP 102/67; PULSE 77; RESP 16; O2SAT 99
== END 2021-02-11 16:06 | disposition home or self-care (01) ==
PROVIDERS: Emergency Provider Student in an Organized Health Care Education/Training Program
DX: O26.892 Other specified pregnancy related conditions, second trimester (principal); R07.9 Chest pain, unspecified; Z3A.00 Weeks of gestation of pregnancy not specified; O99.332 Smoking (tobacco) complicating pregnancy, second trimester; F17.210 Nicotine dependence, cigarettes, uncomplicated
CPT/HCPCS: 71045; 71275; 80048; 84484; 85025; 85379; 93005; 99284; Q9967; A4216

== ENCOUNTER 2021-04-09 09:54 | Emergency (ER) | payer MEDICAID, SELFPAY ==
[2021-04-09 09:55] VITALS: BP 98/60; PULSE 98; RESP 18; TEMP 36.8; BMI 19.9
--- NOTE | 2021-04-09 10:08 | VDLE_ITS ---
Reason For Study: Pain RIGHT GSV is normal. CFV is compressible, spontaneous, phasic, competent and demonstrates normal augmentation. FV is compressible, spontaneous, phasic, competent and demonstrates normal augmentation. POP V is compressible, spontaneous, phasic, competent and demonstrates normal augmentation. T/P Trunk is compressible. PTV is compressible. RT PerV is compressible. Procedure This is a venous duplex using B-mode, color flow and spectral Doppler. Exam performed portable in ED. A preliminary report was called and/or faxed to [facility]. VL/Venous Duplex US, Unilateral Interpretation Summary There is no evidence of right lower extremity deep vein thrombosis. Right great saphenous vein appears patent and compressible segmentally. Ordering Physician: Osman Means Performed By: Emperatriz Porter RVT
--- NOTE | 2021-04-09 10:09 | EX.ED.DYSGE1 ---
HPI History of Present Illness Chief Complaint: Lower Extremity Injury Informant: patient Narrative Narrative: 25-year-old female presents to the emergency department with pain of the right leg. She states that she is in her second trimester . She has been experiencing sciatica pain in the right leg. She states now however she is experiencing a new pain which she states feels like a charley horse but not having any muscle spasms. She states that the whole leg. She feels it up towards her right side of her abdomen or pelvis. She states her she called her doctor they told her to come to the emergency room. She denies any loss of sensation or muscular weakness. No loss of bowel or bladder control. She is feeling her baby move appropriately. She denies any bleeding or loss of fluid. No fevers. She does endorse hypersensitivity to the skin. She has difficulty finding a position of comfort. She is concerned about the leg locking up/giving out. [facility] Medical History (Updated 04/09/21 @ 10:[address] Osman Means DO) Back pain Placenta previa Shoulder pain Home Medications 1 tab PO/SL DAILY 12/19/20 [History Last Taken Unknown] aspirin [Aspir-81] 81 mg PO DAILY 04/09/21 [History Last Taken Unknown] Allergy/AdvReac Type Severity Reaction Status Date / Time acetaminophen [From Tylenol] AdvReac Other Verified 04/09/21 10:26 diphenhydramine AdvReac Other Verified 04/09/21 10:26 [From Benadryl] hydrocodone bitartrate AdvReac Other Verified 04/09/21 10:26 [From Vicodin] ibuprofen [From Advil] AdvReac Other Verified 04/09/21 10:26 oxycodone [From Percocet] AdvReac Other Verified 04/09/21 10:26 Surgical History H/O LEEP History of tonsillectomy Uterine mass Social History Smoking Status: Current every day smoker tobacco type: cigarettes alcohol intake: never ROS ROS ED Constitutional Constitutional ED: Denies chills or weight loss Eyes Eyes: Denies change in vision or diplopia ENT ENT ED: Denies ear pain, rhinorrhea or sore throat Cardiovascular Cardiovascular: Denies chest pain, orthopnea, palpitations or racing heartbeat Respiratory/Chest Respiratory/Chest: Denies cough, dyspnea or orthopnea Gastrointestinal Gastrointestinal: Denies abdominal pain, diarrhea, nausea or vomiting Genitourinary Genitourinary ED: Denies dysuria, hematuria or urinary frequency Musculoskeletal Musculoskeletal: Reports back pain and other Details: Right leg pain ; Denies arthralgias or myalgias Integumentary Denies abscess or rash Neurologic Neurologic: Denies headache(s) or weakness Psychiatric Psychiatric: Denies anxiety, depression, suicidal ideation or suicidal thoughts Endocrine Endocrinology: Denies polydipsia, polyphagia or polyuria Allergic/Immunologic Allergic/Immunologic ED: Denies mouth swelling, tongue swelling or urticaria EXAM Physical Exam Const Vital Signs: 04/09/21 09:55 Temperature 98.3 F Temperature Source Temporal Pulse Rate 98 Respiratory Rate 18 Blood Pressure 98/60 Blood Pressure Mean 72 Positive well nourished and well developed General Appearance ED: well developed HEENT Reports normocephalic, head/scalp atraumatic and moist mucous membranes Eyes PERRL and EOMs intact bilaterally Neck no lymphadenopathy, supple and no JVD Resp normal respiratory effort and clear to auscultation bilaterally Cardio regular rate, regular rhythm and no murmurs GI normal to inspection, nondistended, normoactive bowel sounds and non-tender Palpation: soft Back/Spine no CVA tenderness and normal ROM Extremity Extremity Narrative: She reports tenderness to palpation . There is pain in the right buttock General Extremety ED: Yes tenderness; Negative for edema General Extremity: Negative for edema Neuro oriented x3 and CN's II-XII intact bilaterally Sensorium / Orientation: alert Motor Exam: strength 5/5 throughout Psych mental status grossly normal Mood & Affect: Negative for depressed or tearful Skin no rashes or lesions noted and no wounds MDM MDM MDM Narrative Medical decision making narrative: Duplex ultrasound is negative. CMP with normal sodium and potassium and magnesium. Glucose 78. The patient at this point will be discharged home. She does not wish any pain medication. She will follow up with [facility] at her next appointment Lab Data Attestation: I reviewed the patient's lab results. Labs: Laboratory Results - last 24 hr 04/09/21 10:19 Sodium 136 Potassium 3.9 Chloride 107 Carbon Dioxide 24.0 Anion Gap 5 BUN 7 Creatinine 0.43 L Estim Creat Clear Calc 163.24 Est GFR (MDRD) Af Amer 225 Est GFR (MDRD) Non-Af 186 BUN/Creatinine Ratio 16.3 Glucose 78 Calcium 8.3 L Magnesium 1.9 Total Bilirubin 0.40 AST 14 L ALT 24 Alkaline Phosphatase 65 Total Protein 6.4 Albumin 2.6 L Globulin 3.8 Albumin/Globulin Ratio 0.7 L Discharge Plan Triage Chief Complaint: Lower Extremity Injury ED Provider: Osman Means Dx/Rx/DC Orders Clinical Impression: Sciatica, Second trimester Instructions: ED Sciatica Prescriptions: No Action 1 tab 1 tab PO/SL DAILY RF: 0 aspirin [Aspir-81] 81 mg Tablet,Delayed Release (Dr/Ec) 81 mg PO DAILY RF: 0 Primary Care Provider: Care Physician,No Primary Referrals: Care Physician,No Primary [Primary Care Provider] - Activity Restrictions/Additional Instructions: Follow-up with your [facility] as scheduled Disposition Disposition: Home, Self Care
[2021-04-09 10:46] LABS: ALB/GLOB Ratio 0.7 RATIO (0.9-2.4); AST(SGOT) 14 U/L (15-37); Alanine Aminotransfer ALT/SGPT 24 U/L (13-56); Albumin, Serum 2.6 g/dL (3.2-5.0); Alkaline Phosphatase 65 U/L (45-117); Anion Gap 5 (5-15); BUN 7 mg/dL (7-18); BUN/Creat Ratio 16.3 RATIO (10-20); Calcium,Total 8.3 mg/dL (8.5-10.1); Chloride 107 mmol/L (98-107); Creatinine, Serum 0.43 mg/dL (0.55-1.02); EST Glomerular Filtration Rate 186 mL/min (>60); Est Glom Filt Rate - Afr Amer 225 mL/min (>60); Estimated Creatinine Clearance 163.24 ml/min; Globulin 3.8 g/dL (2.2-4.2); Glucose 78 mg/dL (74-106); Magnesium 1.9 mg/dL (1.6-2.6); Potassium 3.9 mmol/L (3.5-5.1); Protein, Total 6.4 g/dL (6.4-8.2); Sodium Level 136 mmol/L (136-145)
[2021-04-09 11:01] VITALS: BP 93/56; PULSE 78; RESP 16; O2SAT 99
== END 2021-04-09 11:06 | disposition home or self-care (01) ==
LOC: ED 11:05
PROVIDERS: Emergency Provider Emergency Medicine
DX: O99.891 Other specified diseases and conditions complicating pregnancy (principal); M54.31 Sciatica, right side; O99.332 Smoking (tobacco) complicating pregnancy, second trimester; F17.210 Nicotine dependence, cigarettes, uncomplicated; Z3A.00 Weeks of gestation of pregnancy not specified
CPT/HCPCS: 36415; 80053; 83735; 93971; 99282

== ENCOUNTER 2021-06-26 20:20 | Outpatient (CLI) | payer MEDICAID, SELFPAY ==
[2021-06-26 20:42] VITALS: TEMP 36.5
[2021-06-26 20:44] VITALS: BP 106/62; PULSE 93
[2021-06-26 20:51] VITALS: BMI 21.2
[2021-06-26] MEDS: Mag Hydrox/Al Hydrox/Simeth 30 ML UDC PO (21:19)
--- NOTE | 2021-07-06 08:50 | OB.TRI.NOTE ---
HPI - General HPI Narrative NEIL BAUTISTA, is a 26 F who presents with decreased FM. PFSH PFSH Medical History (Updated 07/06/21 @ 08:[address] Jamie Beck MD) Back pain Placenta previa Shoulder pain Home Medications 1 tab PO/SL DAILY 12/19/20 [History Last Taken 06/25/21] aspirin [Aspir-81] 81 mg PO DAILY 04/09/21 [History Last Taken 06/25/21] Allergy/AdvReac Type Severity Reaction Status Date / Time acetaminophen [From Tylenol] AdvReac Other Verified 04/09/21 10:26 diphenhydramine AdvReac Other Verified 04/09/21 10:26 [From Benadryl] hydrocodone bitartrate AdvReac Other Verified 04/09/21 10:26 [From Vicodin] ibuprofen [From Advil] AdvReac Other Verified 04/09/21 10:26 oxycodone [From Percocet] AdvReac Other Verified 04/09/21 10:26 Surgical History H/O LEEP History of tonsillectomy Uterine mass Social History Smoking Status: Current every day smoker tobacco type: cigarettes alcohol intake: never History Elective abortions Hx Para 2 Spontaneous abortions Hx # Term Pregnancies Ectopic pregnancies Hx # Pregnancies Multiple births # of living children NST FHR Rate Baby A Baseline: 135 Variability:: Moderate Accelerations:: 15 x 15 Decelerations:: Variable NST Reactive:: Yes Uterine Activity:: quiet Assessment & Plan (1) Decreased movement: QUALIFIERS: Trimester: third trimester COMMENT: 35&3 PLAN: Reactive NST
== END 2021-06-26 21:35 | disposition home or self-care (01) ==
LOC: WPOUT 20:35 → WP 20:36
PROVIDERS: Visit Provider Obstetrics & Gynecology
DX: O36.8130 Decreased fetal movements, third trimester, not applicable or unspecified (principal); Z3A.35 35 weeks gestation of pregnancy
CPT/HCPCS: 59025; 59050; 99218; G0378

== ENCOUNTER 2022-10-29 11:05 | Emergency (ER) | payer MEDICAID, SELFPAY ==
[2022-10-29 11:05] VITALS: BP 116/85; PULSE 96; RESP 14; TEMP 36.3; O2SAT 97; BMI 17.8
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
== END 2022-10-29 12:48 | disposition home or self-care (01) ==
PROVIDERS: Emergency Provider Student in an Organized Health Care Education/Training Program; Visit Provider Student in an Organized Health Care Education/Training Program
DX: S09.90XA Unspecified injury of head, initial encounter (principal); R11.2 Nausea with vomiting, unspecified; Y04.8XXA Assault by other bodily force, initial encounter
CPT/HCPCS: 99283

== ENCOUNTER 2022-11-03 01:44 | Emergency (ER) | payer MEDICAID, SELFPAY ==
--- NOTE | 2022-11-03 02:30 | RAD_ITS ---
INDICATION: CP EXAMINATION/TECHNIQUE: X-RAY - XR Chest 2 Views COMPARISON: None. FINDINGS: LINES/DEVICES: None. LUNGS: No consolidation, edema or effusion. No pneumothorax. MEDIASTINUM AND CARDIOVASCULAR STRUCTURES: Cardiac silhouette not enlarged. Central airways and mediastinal contour are unremarkable. BONES AND SOFT TISSUES: Unremarkable. RAD/Chest PA and Lateral IMPRESSION: No radiographic evidence of acute cardiopulmonary disease. Electronically Signed: Alice Arango MD at 3:13 EDT ,
--- NOTE | 2022-11-03 03:30 | CT_ITS ---
INDICATION: Continued pain from head injury on 10/28. EXAMINATION: CT BRAIN - CT Head or Brain W/O Contrast Injection TECHNIQUE: Multiple axial images were obtained of the head without intravenous contrast. A radiation dose optimization technique was used for this scan. IV Contrast dosage and agent: None. RADIATION DOSAGE (If Supplied By Facility): CTDIvol = ( 44.99 ) mGy, DLP = ( 762.36 ) mGycm COMPARISON: FINDINGS: BRAIN PARENCHYMA: No intra- or extra-axial hemorrhage. No evidence of acute infarct. No intracranial mass or mass effect. There is preservation of the cifuentes/white matter interface. Posterior fossa structures are unremarkable. CSF SPACES: Appropriate for age. No hydrocephalus. Basal cisterns are patent. CALVARIUM, SKULL BASE, PARANASAL SINUSES AND MASTOID AIR CELLS: Clear. No discrete lytic or blastic abnormalities. ORBITS: Both globes, extraocular muscles, optic nerves and retrobulbar fat appear unremarkable. ASPECTS Score for Acute Strokes: 10 CT/Brain/Head without Contrast IMPRESSION: Negative Brain CT without contrast. Electronically Signed: Alice Arango MD at 6:10 EDT ,
--- NOTE | 2022-11-03 03:30 | CT_ITS ---
STUDY: CTA CHEST REASON FOR EXAM: Female, 27 years old. Chest pain, elevated d-dimer, intermittent shortness of breath, cough for couple of hours. RADIATION DOSAGE (If Supplied By Facility): CTDIvol = ( 4.62 ) mGy, DLP = ( 112.07 ) mGycm TECHNIQUE: The examination was performed with the intravenous administration of IV 75mL Isovue-370. Post-processing of the angiographic images was performed, with multiplanar reformation and 3D reconstruction. Individualized dose optimization techniques were used for this CT. COMPARISON: None. FINDINGS: Normal enhancement of the main pulmonary artery and right and left pulmonary arteries. Normal enhancement of the bilateral peripheral pulmonary arteries. There is no demonstrated pulmonary embolism. Normal thoracic aorta and visualized great vessels. There is no demonstrated aortic dissection. Normal heart and pericardium. Normal mediastinum. Normal hilar regions. Normal visualized trachea and bronchi. The lungs are well expanded. Normal pulmonary parenchyma. Normal pleura. Normal chest wall structures. Normal osseous structures. Normal visualized upper abdomen. CT/CTA Chest W/WO Contrast IMPRESSION: There is small subsegmental PE in the lateral basal segment of the left lower lobe. There is no right heart strain. Electronically Signed: Alice Arango MD at 4:15 EDT ,
[2022-11-03 06:33] LABS: Anion Gap 5 (5-15); BUN 13 mg/dL (7-18); Calcium,Total 8.5 mg/dL (8.5-10.1); Chloride 107 mmol/L (98-107); Creatinine, Serum 0.76 mg/dL (0.55-1.02); EST Glomerular Filtration Rate 95 mL/min (>60); Est Glom Filt Rate - Afr Amer 115 mL/min (>60); Glucose 96 mg/dL (74-106); Potassium 3.8 mmol/L (3.5-5.1); Sodium Level 136 mmol/L (136-145)
--- NOTE | 2022-11-03 06:38 | ED.VIS.CHEST ---
HPI History of Present Illness Chief Complaint: Chest Pain Informant: patient Onset/Context/Timing Onset: Yesterday Narrative Narrative: Patient presents secondary to sharp right upper chest pain that started around 11 PM last evening. Patient was seen over the weekend with a closed head injury and felt have a mild concussion. No imaging was needed at that time. She states since then she has had pain in the right side of her neck and then last evening developed sharp pain in the right upper portion of her chest. She states when the pain gets severe she will feel short of breath. [facility] Medical History Anemia Back pain Headache Hypoglycemia Migraines Placenta previa Shoulder pain UTI (urinary tract infection) Home Medications 1 tab PO/SL DAILY 12/19/20 [History Last Taken 06/25/21] aspirin 81 mg tablet,delayed release 81 mg PO DAILY 04/09/21 [History Last Taken 06/25/21] cholecalciferol (vitamin D3) 50 mcg (2,000 unit) capsule 50 mcg PO DAILY 10/18/21 [History Last Taken Unknown] apixaban 5 mg (74 tabs) tablets in a dose pack (Eliquis DVT-PE Treat 30D Start) 5 mg PO BID #74 tabs 11/03/22 [Rx Last Taken Unknown] Allergy/AdvReac Type Severity Reaction Status Date / Time acetaminophen [From Tylenol] AdvReac Other Verified 10/29/22 11:08 diphenhydramine AdvReac Other Verified 10/29/22 11:08 [From Benadryl] hydrocodone bitartrate AdvReac Other Verified 10/29/22 11:08 [From Vicodin] ibuprofen [From Advil] AdvReac Other Verified 10/29/22 11:08 oxycodone [From Percocet] AdvReac Other Verified 10/29/22 11:08 Family History Grandmother Breast cancer Father Hypertension High cholesterol Mother Anxiety Mental disorder Skin cancer Uncle High cholesterol Surgical History H/O LEEP History of tonsillectomy History of tubal ligation Uterine mass Social History Smoking Status: Current every day smoker tobacco type: cigarettes alcohol intake: never substance use type: does not use ROS ROS ED Constitutional Constitutional ED: Denies chills or fever(s) Eyes Eyes: Denies change in vision or discharge from eye(s) ENT ENT ED: Denies discharge from eye(s), rhinorrhea or sore throat Cardiovascular Cardiovascular: Reports chest pain; Denies palpitations Respiratory/Chest Respiratory/Chest: Reports dyspnea; Denies cough Gastrointestinal Gastrointestinal: Denies abdominal pain, nausea or vomiting Genitourinary Genitourinary ED: Denies dysuria Musculoskeletal Musculoskeletal: Denies back pain or extremity pain Integumentary Denies Abrasions or rash Neurologic Neurologic: Denies headache(s) or weakness Psychiatric Psychiatric: Denies anxiety or depression Allergic/Immunologic Allergic/Immunologic ED: Denies lip swelling or urticaria EXAM Physical Exam Const Positive well nourished and well developed General Appearance ED: well developed HEENT Reports normocephalic and head/scalp atraumatic Eyes PERRL and EOMs intact bilaterally Neck supple Chest Wall inspection of chest normal and palpation of chest normal Resp normal respiratory effort and clear to auscultation bilaterally Cardio regular rate and regular rhythm GI normal to inspection, nondistended, normoactive bowel sounds Palpation: soft Back/Spine no CVA tenderness Extremity normal to inspection Neuro oriented x3 and no sensory deficits noted Sensorium / Orientation: alert Motor Exam: strength 5/5 throughout Psych mental status grossly normal Skin no rashes or lesions noted Heart Score History: Slightly/Non-Suspicious ECG: Normal Age: </= 45 years Risk Factors: No Risk Factors Troponin: </= Normal Limit Score: 0 MDM MDM MDM Narrative Medical decision making narrative: Patient placed on cardiac technologist. EKG obtained to evaluate for cardiac arrhythmia/ischemia. Chest x-ray obtained to evaluate for acute lung pathology, cardiac size, or mediastinal abnormality. Labwork obtained to evaluate for leukocytosis, anemia, and electrolyte derangement. Lab Data Attestation: I reviewed the patient's lab results. Lab results narrative: CBC unremarkable. Troponin is less than 3. D-dimer is slightly elevated at 0.73. Labs: Laboratory Results - last 24 hr 11/03/22 02:25 Sodium 136 Potassium 3.8 Chloride 107 Carbon Dioxide 24.0 Anion Gap 5 BUN 13 Creatinine 0.76 Est GFR (MDRD) Af Amer 115 Est GFR (MDRD) Non-Af 95 BUN/Creatinine Ratio 17.0 Glucose 96 Calcium 8.5 Radiography Chest X-Ray - ED: 2 View, Read by ED Physician and - (Hyperinflation with no acute abnormalities.) Diagnostic Testing: Clinical Impression(s) from Imaging Studies Brain CT 11/03/22 03:30 IMPRESSION: Negative Brain CT without contrast. Electronically Signed: Alice Arango MD at 6:10 EDT , Chest CTA 11/03/22 03:30 IMPRESSION: There is small subsegmental PE in the lateral basal segment of the left lower lobe. There is no right heart strain. 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 Two-view chest x-ray per my interpretation was hyperinflation with no acute abnormalities. Radiology interpretation is reviewed and agrees. Chemistry studies are normal. CBC is normal. Troponin is less than 3 and D-dimer slightly elevated at 0.73. Given the patient's elevated troponin she is sent for CTA of the chest. This does reveal evidence of a small subsegmental PE in the left lower lobe. No evidence of heart strain. I went back and specifically asked the patient if she been having any pain in the left lower portion of her chest. She does report intermittently getting sharp stabbing pain in this area. Patient was recently seen with closed head injury and mild concussion symptoms. She did not have any imaging studies at that time. Given that I now need to start her on anticoagulation she was sent for head CT to ensure no acute abnormalities or evidence of bleed. Head CT is normal. Patient will be started on Eliquis, first dose given here. She is given a card for first 30 days free. She is referred to rochelle Ng on the no doc list to establish primary care. Patient did have a hypercoagulable panel sent prior to initiating her Eliquis. Discharge Plan Triage Chief Complaint: Chest Pain ED Provider: Donna Albrecht Dx/Rx/DC Orders Clinical Impression: Pulmonary embolism Instructions: Embolism Pulmonary Dc Prescriptions: New Eliquis DVT-PE Treat 30D Start 5 mg (74 tabs) tablets,dose pack 5 mg PO BID Qty: 74 0RF No Action cholecalciferol (vitamin D3) 50 mcg (2,000 unit) capsule 50 mcg PO DAILY 1 tab 1 tab PO/SL DAILY aspirin [Aspir-81] 81 mg Tablet,Delayed Release (Dr/Ec) 81 mg PO DAILY Primary Care Provider: Care Physician,No Primary Referrals: Hadley Quintero MD [Med Staff - Copying Machine Repairer] - 1-2 Weeks Care Physician,No Primary [Primary Care Provider] - Disposition Disposition: Home, Self Care
[2022-11-03 08:08] LABS: D-Dimer Quantitative (DVT/PE) 0.73 FEU/ug/m (0.27-0.49)
[2022-11-03 08:34] LABS: Troponin-I HS < 3 pg/mL (3.0-54.0)
[2022-11-03 09:33] LABS: Hematocrit 35.9 % (37-47); Mean Corp Hgb Conc 33.4 g/dL (32-36); Mean Corpuscular Hgb 29.8 pg (27.0-32.0); Mean Corpuscular Volume 89.1 fL (81-99); Platelet Count 210 K/mm3 (150-450); RBC Distribution Width CV 13.1 % (11.6-14.6); Red Blood Count 4.03 M/mm3 (4.2-5.4); White Blood Count 7.5 K/mm3 (4.4-11.0)
[2022-11-03 09:34] LABS: Absolute Lymphocyte Count 1.69 X10^3/uL (0.83-4.51); Absolute Neutrophil Count 4.8 X10^3/uL (2.0-7.7); Basophil# 0.03 X10^3/uL; Basophil% 0.4 % (0-1); Eosinophil# 0.11 X10^3/uL; Eosinophils% 1.5 % (0-5); Lymphocyte # 1.69 X10^3/ul (0.83-4.51); Lymphocyte % 22.6 % (19-41); Monocyte# 0.81 X10^3/uL; Monocyte% 10.8 % (0-10); Neutrophil # 4.82 X10^3/uL (2.7-7.7); Neutrophil % 64.4 % (47-70)
== END 2022-11-03 07:10 | disposition home or self-care (01) ==
PROVIDERS: Emergency Provider Emergency Medicine; Visit Provider Emergency Medicine
DX: I26.99 Other pulmonary embolism without acute cor pulmonale (principal); F17.210 Nicotine dependence, cigarettes, uncomplicated
CPT/HCPCS: 36415; 70450; 71046; 71275; 80048; 84484; 85025; 85379; 93005; 96360; 96361; 99284; J7030; Q9967; A4216

== ENCOUNTER 2025-05-08 10:52 | Emergency (ER) | payer OTHER, MEDICAID, SELFPAY ==
[2025-05-08 10:54] VITALS: PULSE 83; RESP 15; TEMP 36.6; O2SAT 98; BMI 18.7
--- NOTE | 2025-05-08 11:19 | EDS_ITS ---
HPI History of Present Illness Chief Complaint: Head Injury Informant: patient Onset/Context/Timing Onset: Today Mechanism/Context: Blunt Injury Current Severity: Mild Maximum Severity: Mild Associated Symptoms Associated Symptoms: Negative for Parasthesias, Weakness, Loss of function, Inability to ambulate, Loss of consciousness or Amnesia Narrative Narrative: Healthy 29-year-old female with a prior history of DVTs. Currently not on blood thinners. And has not been so for years. Last blood clots were 3+ years ago. Was jumping today at work and jumped up and hit the ceiling. Striking her head. No LOC. No neck pain. No other complaints. No nausea or vomiting. Prior similar symptoms: Yes Recent Illness/Hospitalization: No PFSH PFSH Medical History Hypoglycemia Migraines Headache UTI (urinary tract infection) Anemia Placenta previa Back pain Shoulder pain Home Medications ?Medication ?Instructions ?Recorded ?Last Taken ?Type apixaban 5 mg tablet (Eliquis) 5 mg PO BID 12/28/22 Un known History Allergy/AdvReac Type Severity Reaction Status Date / Time acetaminophen (From Tylenol) AdvReac Other Verified 05/08/25 11:00 diphenhydramine (From AdvReac Other Verified 05/08/25 11:00 Benadryl) hydrocodone bitartrate (From AdvReac Other Verified 05/08/25 11:00 Vicodin) ibuprofen (From Advil) AdvReac Other Verified 05/08/25 11:00 oxycodone (From Percocet) AdvReac Other Verified 05/08/25 11:00 Family History Grandmother Breast cancer Father Hypertension High cholesterol Mother Anxiety Mental disorder Skin cancer Uncle High cholesterol Surgical History History of tubal ligation Uterine mass H/O LEEP History of tonsillectomy Social History Smoking Status: Current every day smoker tobacco type: cigarettes alcohol intake: never substance use type: does not use ROS ROS ED ROS Narrative Denies recent illness. Constitutional Constitutional ED: Denies chills or fever(s) Eyes Eyes: Denies blurry vision ENT ENT ED: Denies ear pain Cardiovascular Cardiovascular: Denies chest pain Respiratory/Chest Respiratory/Chest: Denies cough or dyspnea Gastrointestinal Gastrointestinal: Denies abdominal pain Genitourinary Genitourinary ED: Denies dysuria or hematuria Musculoskeletal Musculoskeletal: Denies arthralgias Integumentary Denies abscess Neurologic Neurologic: Denies headache(s) Psychiatric Psychiatric: Denies anxiety Endocrine Endocrinology: Denies cold intolerance Hematologic/Lymphatic Hematologic/Lymphatic: Denies easy bleeding, easy bruising or lymphadenopathy Allergic/Immunologic Allergic/Immunologic ED: Denies mouth swelling, tongue swelling or urticaria EXAM Physical Exam Narrative Exam Narrative: Well-appearing 29-year-old female. Vital signs stable afebrile. No acute distress. H EENT exam pupils round react light. Moist mucous members. Scalp mild tenderness but no swelling. No laceration. No hematoma. C-spine and neck nontender normal range of motion full flexion extension. Back nontender. Spine nontender. Lungs clear equal symmetrical bilaterally. Heart regular rhythm no murmur. Chest wall ribs nontender. Abdomen soft nontender. Pelvic girdle intact. Moving all 4 extremities. 5 out of 5 waste specialist strength. Dorsi plantarflexion intact. Neurologic exam normal. GCS 15. Awake alert. Answ ering questions following commands. Knows where she is at. Knows month and year. Acting appropriately. Not acting concussed. Const Vital Signs: 05/08/25 10:54 Temperature 97.8 F Temperature Source Temporal Pulse Rate 83 Respiratory Rate 15 Pulse Ox 98 Oxygen Delivery Method Room Air MDM MDM MDM Narrative Medical decision making narrative: 29-year-old female work-related Worker's Comp. head injury. Minor injury. No blood thinners. No LOC. Normal GCS of 15. Neurologic exam normal. She does not need any imaging. Discharged home with head injury instructions. History & Record Review Discussion w/independent historian: Patient Additional record(s) reviewed:: Prior inpatient record, Prior outpatient record, Prior ED visit and Prior labs Discharge Plan Triage Chief Complaint: Head Injury ED Provider: Wiliam Arita Dx/Rx/DC Orders Clinical Impression: Head injury, Encounter related to worker's compensation claim Instructions: ED Head Injury (Adult) Prescriptions: No Action Eliquis 5 mg tablet 5 mg PO BID Primary Care Provider: Care Physician,No Primary Referrals: Corporate,[facility] [Group of Physicians, Medical] - As Needed Care Physician,No Primary [Primary Care Provider, Medical] Activity Restrictions/Additional Instructions: Ice to your scalp. Motrin for pain. Follow-up with corporate care as needed. You have a mild head injury. Could have a mild concussion. You do not need a CAT scan. Print Language: Chinese Disposition Disposition: Home, Self Care
== END 2025-05-08 11:54 | disposition home or self-care (01) ==
PROVIDERS: Emergency Provider Emergency Medicine; Visit Provider Emergency Medicine
DX: S09.90XA Unspecified injury of head, initial encounter (principal); Z86.718 Personal history of other venous thrombosis and embolism; F17.210 Nicotine dependence, cigarettes, uncomplicated; Z98.51 Tubal ligation status; W22.8XXA Striking against or struck by other objects, initial encounter; Y99.0 Civilian activity done for income or pay; Y92.89 Other specified places as the place of occurrence of the external cause
CPT/HCPCS: 99282